=== PATIENT | female | born 1975 | race Caucasian/White ===

== ENCOUNTER 2018-11-02 17:06 | Emergency (ER) | payer OTHER ==
[~2018-11-02] VITALS: Ht 162.6 cm; Wt 72.1 kg
[2018-11-02 17:17] VITALS: Ht 162.6 cm; Wt 72.1 kg
[2018-11-02 18:47] VITALS: BP 120/81
== END 2018-11-02 19:25 | disposition home or self-care (01) ==
LOC: ED 17:06
DX: S13.4XXA Sprain of ligaments of cervical spine, initial encounter (principal); Z90.710 Acquired absence of both cervix and uterus; Z98.890 Other specified postprocedural states; V43.52XA Car driver injured in collision with other type car in traffic accident, initial encounter; Y93.I9 Activity, other involving external motion; Y92.411 Interstate highway as the place of occurrence of the external cause; Y99.8 Other external cause status
CPT/HCPCS: J1885

== ENCOUNTER 2018-11-05 16:44 | Emergency (ER) | payer OTHER ==
[~2018-11-05] VITALS: Ht 162.6 cm; Wt 72.1 kg
[2018-11-05 17:04] VITALS: Ht 162.6 cm; Wt 72.1 kg
[2018-11-05 19:18] VITALS: BP 111/88
== END 2018-11-05 19:18 | disposition home or self-care (01) ==
LOC: ED 16:44
DX: M54.6 Pain in thoracic spine (principal); M54.2 Cervicalgia; M25.512 Pain in left shoulder; V89.2XXA Person injured in unspecified motor-vehicle accident, traffic, initial encounter; Y93.89 Activity, other specified; Y92.89 Other specified places as the place of occurrence of the external cause; Y99.8 Other external cause status
CPT/HCPCS: 72072

== ENCOUNTER 2019-04-24 08:14 | Emergency (ER) | payer OTHER ==
[~2019-04-24] VITALS: Ht 162.6 cm; Wt 70.8 kg
[2019-04-24 08:18] VITALS: Ht 162.6 cm; Wt 70.8 kg
[2019-04-24 09:56] VITALS: BP 121/84
== END 2019-04-24 09:56 | disposition home or self-care (01) ==
LOC: ED 08:14
DX: M54.6 Pain in thoracic spine (principal); M54.5 Low back pain
CPT/HCPCS: J1885

== ENCOUNTER → 2019-07-24 | Outpatient (CLI) | payer OTHER ==
[2019-07-24 07:54] LABS: BASOPHIL % 0.2 % (0-2); PLATELET COUNT 288 x10^3mcL (130-400); RED CELL DISTRIBUTION WIDTH 12.5 % (11.5-14.5)
[2019-07-24 08:25] LABS: ALBUMIN 3.7 g/dL (3.4-5.0); ALKALINE PHOSPHATASE 56 U/L (46-116); ALT/SGPT 33 U/L (14-59); AST/SGOT 14 U/L (15-37); BILIRUBIN TOTAL 1.26 mg/dL (0.20-1.00); CARBON DIOXIDE 27.1 mmol/L (21-32); CHLORIDE SERUM 102 mmol/L (98-107); CHOLESTEROL 174 mg/dL (<200); CHOLESTEROL/HDL RATIO 3.1; CREATININE SERUM 0.7 mg/dL (0.6-1.0); GFR1 > 60 mL/min; GLUCOSE SERUM 89 mg/dL (74-106); HDL CHOLESTEROL 56 mg/dL (40-60); POTASSIUM SERUM 3.6 mmol/L (3.5-5.1); SODIUM SERUM 137 mmol/L (136-145); TOTAL PROTEIN, SERUM 6.8 g/dL (6.4-8.2); TRIGLYCERIDES 60 mg/dL (<150)
[2019-07-25 05:08] LABS: RAPID PLASMA REAGIN Non Reactive (Non Reactive)
== END | disposition home or self-care (01) ==
LOC: LB 07:23
DX: Z00.00 Encounter for general adult medical examination without abnormal findings (principal); Z87.440 Personal history of urinary (tract) infections; N39.0 Urinary tract infection, site not specified
CPT/HCPCS: 87491; 87591